=== PATIENT | male | born 1980 ===

== ENCOUNTER 2024-03-27 05:45 | Day surgery (SDC) | payer OTHER ==
[2024-03-12 12:04] VITALS: BP 134/90
[~2024-03-27] VITALS: Ht 170.2 cm; Wt 83.9 kg
[~2024-03-27 05:45] MED LIST: LOTREL 10-20 M1 EACH PO
[2024-03-27] MEDS ORDERED: EPINEPHRINE HCL/PF 1 MG/ML AMPUL ONE ×2 (09:50→10:25)
[2024-03-27] MEDS ORDERED: LIDOCAINE HCL 1%/EPINEPHRINE 20ML VIAL IJ ONE (09:51)
[2024-03-27] MEDS ORDERED: POVIDONE-IODINE SCRUB 118 ML BOTT TOP ONE (09:51)
[2024-03-27] MEDS ORDERED: POVIDONE-IODINE 118 ML BOTT TOP ONE (09:51)
[2024-03-27] MEDS ORDERED: CEFAZOLIN SODIUM 1,000 MG VIAL ONE (09:51)
[2024-03-27] MEDS ORDERED: DEXAMETHASONE SODIUM PHOSPHATE 4 MG/ML VIAL ONE (10:32)
[2024-03-27] MEDS ORDERED: CEPHALEXIN500 MG PO (11:32)
[2024-03-27] MEDS ORDERED: CIPROFLOXACIN2.5 ML OTIC (11:33)
== END 2024-03-27 14:20 | disposition home or self-care (01) ==
LOC: CIR.AMB 05:45
PROVIDERS: ATTEND Otolaryngology Otology & Neurotology
DX: H90.11 Conductive hearing loss, unilateral, right ear, with unrestricted hearing on the contralateral side (principal); H80.91 Unspecified otosclerosis, right ear; I10 Essential (primary) hypertension